=== PATIENT | male | born 1940 | race Caucasian/White ===

== ENCOUNTER 2019-09-19 12:29 | Outpatient (CLI) | payer MEDICARE, SELFPAY ==
--- NOTE | ~2019-09-19 | CT_ITS ---
EXAMINATION: CT chest w con DATE: 09/19/2019 13:26 INDICATION: Epithelioid mesothelioma TECHNIQUE: Computed tomography (CT) of the chest was performed with 75 cc intravenous contrast. The d ose-length product was 197.48 mGy-cm. Automated exposure control and iterative reconstruction technShoozy ue were employed. COMPARISON: None FINDINGS: There is mediastinal lymph node enlargement. Prevascular space lymph node measures 1.7 cm, image 50. Right paratracheal lymph node measures 1.2 cm, image 42. Right hilar lymphadenopathy measur ing 1.1 cm. There are calcified granulomas of the subcarinal location. No significant pleural or christiano cardial effusion. There is a right middle lobe pleural-based mass measuring 4.1 x 2.1 cm, images 57-6 5. There is a second right middle lobe mass measuring 1.7 x 1.5 cm, image 71. There is deformity of m ultiple right-sided ribs, possibly postsurgical. Fatty infiltration of the liver. The spleen, pancreas, adrenal glands are unremarkable. Gallbladder i s present. No endobronchial lesions. There are calcified pleural plaques in the left thorax, likely f rom previous asbestos exposure. Levator right diaphragm. IMPRESSION: 1. Pleural-based masses of the right middle lobe, largest measuring 4.1 x 2.1 cm, likely correspondin g to known mesothelioma. 2: Enlarged mediastinal and right hilar lymphadenopathy, likely metastatic disease. 3: Soft tissue pleural plaques left thorax some of which are calcified, possibly from previous asbest os exposure. Reviewed, dictated and finalized at location A. IMPRESSION: 1. Pleural-based masses of the right middle lobe, largest measuring 4.1 x 2.1 c m, likely corresponding to known mesothelioma. 2: Enlarged mediastinal and right hilar lymphadenopathy, likely metastatic dise ase. 3: Soft tissue pleural plaques left thorax some of which are calcified, possibl y from previous asbestos exposure.
== END 2019-09-19 12:30 | disposition home or self-care (01) ==
PROVIDERS: Visit Provider Internal Medicine Hematology & Oncology
DX: C45.9 Mesothelioma, unspecified (principal); R91.8 Other nonspecific abnormal finding of lung field; R59.0 Localized enlarged lymph nodes
CPT/HCPCS: 36415; 71260; 80048; 80053; 81001; 82248; 82533; 83615; 84100; 84439; 84443; 85025; 96413; J9299; Q9967

== ENCOUNTER 2019-12-12 08:58 | Outpatient (CLI) | payer MEDICARE, SELFPAY ==
--- NOTE | ~2019-12-12 | CT_ITS ---
EXAMINATION: CT chest w con EXAM DATE: 12/12/2019 09:34 INDICATION: Pleural mesothelioma. TECHNIQUE: Spiral CT of the chest following intravenous injection of 75 mL Omnipaque 350. Axial, cor onal and sagittal images were reviewed. Coronal maximum intensity pixel images of chest reviewed. Lamin hernandes dose-length product (DLP) for this examination was 204.80 mGy-cm. The exposure was tailored accor ding to patient size (auto mA exposure control), and iterative reconstruction (ASIR) was used as krystyna tional dose reduction technique. Comparison is made to prior examination from 09/19/2019. FINDINGS: There is new spiculated left suprahilar density measuring about 2.0 x 0.8 cm, likely malig carroll. There is been interval increase in size of the pericardial and right pleural metastatic diseas e, and the mediastinal, prevascular lymphadenopathy. For example a right lower paratracheal lymph nod e measuring 2.7 x 2.0 cm versus 8 x 10 mm on prior study. Pericardial invasion is extending from the ventricular apex to the superior aspect, filling space between the pulmonary artery and left atrium. Right-sided pleural and pericardial invasion is indenting the right atrium, with this region measurin g 3.5 x 3.0 cm today (previously 2.8 x 1.5 cm). Again there is nodular thickening of the right lung m edial pleural sulcus, retrocrural location. Again there are bilateral pleural plaques. There are no central pulmonary emboli. There are no pleural or pericardial effusions. Tracheobronch ial tree is patent. There is no pneumothorax. Heart normal in size. Upper abdomen is unrema rkable. There is thoracic spondylosis without osteoblastic or osteolytic lesions identified. IMPRESSION: 1. Worsening right pleural, pericardial metastases now causing mild mass effect on the atria. 2. Worsening prevascular, paratracheal metastatic lymphadenopathy. 3. Development of small spiculated left suprahilar mass likely malignancy. 4. Bilateral pleural plaques. Reviewed, dictated and finalized at location A. IMPRESSION: 1. Worsening right pleural, pericardial metastases now causing mild mass effec t on the atria. 2. Worsening prevascular, paratracheal metastatic lymphadenopathy. 3. Development of small spiculated left suprahilar mass likely malignancy. 4. Bilateral pleural plaques.
== END 2019-12-12 08:59 | disposition home or self-care (01) ==
PROVIDERS: Visit Provider Internal Medicine Hematology & Oncology
DX: C45.0 Mesothelioma of pleura (principal); R91.8 Other nonspecific abnormal finding of lung field; R59.0 Localized enlarged lymph nodes
CPT/HCPCS: 71260; Q9967

== ENCOUNTER 2020-03-18 09:32 | Outpatient (CLI) | payer MEDICARE, SELFPAY ==
--- NOTE | ~2020-03-18 | CT_ITS ---
EXAMINATION: CT chest w con DATE: 03/18/2020 10:04 INDICATION: Mesothelioma TECHNIQUE: Transaxial computed tomographic images of the chest were obtained after the administration of 75 cc of Omnipaque 350 intravenous contrast. The dose-length product (DLP) was 189.88 mGy-cm. Ite rative reconstruction was used. COMPARISON: 12/12/2019 FINDINGS: There has been interval decrease in size of pleural-based masses of the right lung. A 3.2 x 2.5 cm pleural-based mass exerting mass effect on the right atrium previously measured 3.5 x 3.0 cm. Pleural-based masses and thickening along the right hemidiaphragm and mediastinum have also decrease d in volume. Right hilar and right paratracheal lymphadenopathy persists but has slightly improved. T here is minimal change to aorticopulmonary window lymphadenopathy and slight increase in prevascular lymphadenopathy. A suprahilar nodule on the left previously measuring 2.1 x 1.1 cm now measures 3.3 x 2.5 cm. There is no pleural effusion or pneumothorax. The heart size is normal. Changes of prior rig ht thoracotomy are noted. There is mild thoracic spondylosis. IMPRESSION: 1. Mixed treatment response as evidenced by improved pleural-based masses on the right and partial im provement in mediastinal lymphadenopathy but enlargement of a left suprahilar mass and prevascular ly mphadenopathy. Reviewed, dictated and finalized at location A. TER CIVIL (CAD) IMPRESSION: 1. Mixed treatment response as evidenced by improved pleural-based masses on th e right and partial improvement in mediastinal lymphadenopathy but enlargement of a left suprahilar mass and prevascular lymphadenopathy.
== END 2020-03-18 09:33 | disposition home or self-care (01) ==
PROVIDERS: Visit Provider Internal Medicine Hematology & Oncology
DX: C45.0 Mesothelioma of pleura (principal)
CPT/HCPCS: 36415; 71260; 80053; 85025; Q9967

== ENCOUNTER 2020-06-03 09:35 | Outpatient (CLI) | payer MEDICARE, SELFPAY ==
--- NOTE | ~2020-06-03 | CT_ITS ---
EXAMINATION:CT chest w con DATE: 06/03/2020 10:36 INDICATION: Mesothelioma. TECHNIQUE: Computed tomography (CT) of the chest was performed with 75 mL Omnipaque 350 intravenous c ontrast. Automated exposure control and iterative reconstruction technique were employed. The dose-le ngth product (DLP) was 238.19 mGy-cm. COMPARISON: Chest CT 03/18/2020 FINDINGS: There is chronic mild elevation of right hemithorax. There is mild atelectasis in right ramu g. There is nodular pleural thickening in right hemithorax. There are calcified pleural plaques on th e left. There is a 3.3 x 3.0 cm mass in left lung upper lobe abutting the mediastinum, which measured 3.4 x 2.6 cm on 03/18/2020. There is left hilar and mediastinal lymphadenopathy. For example, a 1.8 x 1.7 cm node in the aorticopulmonary window previously measured 2.5 x 2.0 cm. A 1.6 x 1.3 cm right pa ratracheal node previously measured 2.0 x 1.7 cm. Calcified right hilar and mediastinal lymph nodes a re consistent with old granulomatous disease. The heart size is normal. There are coronary artery yael cifications. There is nodular thickening of the pericardium. No pericardial effusion. Calcifications in the spleen are consistent with old granulomatous disease. There are chronic defects in right sixth and seventh ribs. There is mild thoracic spondylosis and severe cervical spondylosis. IMPRESSION: 1. Nodular pleural thickening in right hemithorax, nodular pericardial thickening, mediastinal and le ft hilar lymphadenopathy, and left lung upper lobe mass, consistent with metastatic disease with mild interval improvement. Reviewed, dictated and finalized at location B. TLESS DENT REPAIR TECHNICIAN IMPRESSION: 1. Nodular pleural thickening in right hemithorax, nodular pericardial thickeni ng, mediastinal and left hilar lymphadenopathy, and left lung upper lobe mass, consistent with metastatic disease with mild interval improvement.
== END 2020-06-03 09:36 | disposition home or self-care (01) ==
PROVIDERS: Visit Provider Internal Medicine Hematology & Oncology
DX: C45.0 Mesothelioma of pleura (principal)
CPT/HCPCS: 71260; Q9967

== ENCOUNTER 2020-07-04 13:43 | Inpatient (IN) | payer MEDICARE, SELFPAY ==
[2020-07-04] VITALS (27 sets, daily range): BP systolic 115–159; BP diastolic 49–97; PULSE 60–114; RESP 11–25; TEMP 36.4–36.9; O2SAT 93–99; BMI 24.3
--- NOTE | ~2020-07-04 | CT_ITS ---
EXAMINATION: CTA chest PE protocol EXAM DATE: 07/04/2020 17:26 INDICATION: Tachycardia, shortness of breath. TECHNIQUE: Spiral CTA of the chest (pulmonary arteries) was performed with 100 cc Omnipaque 350 intr avenous contrast injection. Images were acquired during the pulmonary arterial phase. Coronal maxi mum intensity projection 3D-reconstructions were created by the technologist on dedicated workstation . Axial, coronal and sagittal reformatted images were reviewed. The dose-length product (DLP) for t his examination was 285.43 mGy-cm. The exposure was tailored according to patient size (auto mA exp osure control), and iterative reconstruction (ASIR) was used as additional dose reduction technique. Comparison is made to prior examination from 06/03/2020. FINDINGS: There is right lower lobe segmental pulmonary embolism. No large or central pulmonary embo li. No thoracic aortic dissection. There is 3.6 cm left upper lobe malignancy. Associated metastati c mediastinal, prevascular and left hilar lymphadenopathy. Patient has developed a small left pleura l effusion, possibly malignant. These findings have progressed compared to last month. Tracheobronchi al tree is patent. There is no mediastinal, hilar or axillary lymphadenopathy. There is no pneumo thorax. Heart normal in size. There is moderate coronary arterial calcification, arterial scleros is. Upper abdomen is unremarkable. Multiple old right rib fractures. IMPRESSION: 1. Positive for right lower lobe segmental pulmonary embolism. Low clot burden. 2. Worsening left suprahilar mass, associated mediastinal, left hilar lymphadenopathy. 3. Development of small left pleural effusion, possibly malignant. I discussed positive pulmonary embolism with charge nurse Mary on 3rd medical surgical floor at 07/04 17:33 TELECOM SALES CONSULTANT. Stated she would notify the doctor reduction furnace operator helper. Reviewed, dictated and finalized at location A. COM SALES CONSULTANT IMPRESSION: 1. Positive for right lower lobe segmental pulmonary embolism. Low clot burden . 2. Worsening left suprahilar mass, associated mediastinal, left hilar lymphade nopathy. 3. Development of small left pleural effusion, possibly malignant. I discussed positive pulmonary embolism with charge nurse Mary on 3rd medical surgical floor at 07/04/2020 17:33 TELECOM SALES CONSULTANT. Stated she would notify the doctor on ca ll.
--- NOTE | ~2020-07-04 | US_ITS ---
EXAMINATION: US venous doppler [facility] DATE: 07/05/2020 11:24 INDICATION: Pulmonary embolism. TECHNIQUE: Grayscale ultrasound images without and with compression and Doppler ultrasound images of the bilateral lower extremity veins were obtained. COMPARISON: None. FINDINGS: The visualized portions of right common femoral vein, profunda (deep) femoral vein, femoral vein, pop liteal vein, posterior tibial veins, peroneal veins, gastrocnemius vein and greater saphenous vein ou tflow are patent. The visualized portions of left common femoral vein, profunda femoral vein, femoral vein, popliteal v ein, posterior tibial veins, peroneal veins, gastrocnemius vein and greater saphenous vein outflow ar e patent. IMPRESSION: 1. No deep venous thrombosis in either lower limb. Reviewed, dictated and finalized at location A. ECTION WELDING MACHINE OPERATOR
--- NOTE | ~2020-07-04 | XR_ITS ---
EXAMINATION: XR chest 1V portable EXAM DATE: 07/04/2020 14:31 INDICATION: Fever. Mesothelioma. TECHNIQUE: Portable AP frontal chest x-ray was obtained. Correlation is made to CT chest from 06/03/19. FINDINGS: Subsegmental regions of bibasilar atelectasis or pneumonia. Left suprahilar mass better see n on CT. No pneumothorax or pleural effusion. Cardiomediastinal silhouette is normal. There are no os teoblastic or osteolytic lesions identified. IMPRESSION: 1. Bibasilar subsegmental atelectasis or pneumonia. 2. Left suprahilar mass. Correlate with recent CT report. Reviewed, dictated and finalized at location A. ANALYST
[2020-07-04] MEDS: SODIUM CHLORIDE 0.9% IV 1,000 ML 999 ML IV CONT (14:28)
--- NOTE | 2020-07-04 14:35 | ED.FEVER ---
HPI - Fever General Chief Complaint: Fever Stated Complaint: not feeling well since chemo, fever today Time Seen by Provider: 07/04/20 14:06 Source: patient and family Limitations: no limitations History of Present Illness HPI Narrative: Patient is 80 years old white male presents with fever started this morning 100.6. Patient report small amount of loose stool 2-3 times overnight. Currently is lethargic. Patient denies any chills, vomiting, chest pain, coughing, shortness of breath, headache, urinary symptoms. Patient had Tylenol 650 mg 1 hour prior to arrival to the emergency room. History of mesothelioma on chemotherapy since December 2019. Last chemotherapy was 5 days ago with slight change. Patient did not eat prior to arrival because he woke up and 12 noon. Currently does not have appetite. Patient denies history of COVID-19 infection or exposure to anybody known having COVID-19 Patient had his first Covid vaccine 4 weeks ago Related Data Home Medications Medication Instructions Recorded Confirmed amlodipine 10 mg PO DAILY 08/22/19 06/30/20 hydrochlorothiazide 12.5 mg PO DAILY 08/22/19 06/30/20 tamsulosin [Flomax] 0.4 mg PO DAILY 08/22/19 06/30/20 venlafaxine 150 mg PO DAILY 08/22/19 06/30/20 atorvastatin 40 mg tablet 40 mg PO DAILY 12/10/19 06/30/20 levothyroxine 75 mcg PO DAILY 01/15/20 06/30/20 dexamethasone 4 mg PO DAILY 02/12/20 06/30/20 folic acid 0.4 mg PO DAILY 02/12/20 06/30/20 zolpidem [Ambien CR] 6.25 mg PO HS 06/25/20 06/30/20 Allergies Allergy/AdvReac Type Severity Reaction Status Date / Time No Known Allergies Allergy Verified 07/04/20 13:49 Review of Systems Review of Systems: Narrative: CONSTITUTIONAL: Denies fever, chills, or sweats. EYES: Denies visual changes, redness, or discharge. ENT: Denies rhinorrhea, congestion, sore throat, or otalgia. CARDIOVASCULAR: Denies chest pain, palpitations, or edema. RESPIRATORY: Denies cough or dyspnea. GASTROINTESTINAL: Denies abdominal pain, nausea, vomiting, or diarrhea. GENITOURINARY: Denies dysuria or hematuria. SKIN: Denies rash or itching. MUSCULOSKELETAL: Denies back pain, joint pain, or myalgia. NEUROLOGIC: Denies headache, numbness, or weakness. PSYCHIATRIC: Denies anxiety or depression. PMFSH Social History Social History Smoking status: Never smoker Second hand tobacco smoke exposure: Yes (in past) Gender identity (if verbalized by the patient): Male Spiritual care concerns: No Exam Narrative: Exam Narrative: General appearance: Well-developed, well-nourished Skin: Normal color Head: Normocephalic, nontraumatic Eyes: Clear conjunctiva ENT: Oropharynx normal, ears normal, nose normal Neck: Supple, nontender Chest and respiratory: Airway patent, no respiratory distress, no accessory muscle use Heart: Regular rate/rhythm Abdomen: Soft, nontender, no organomegaly, quiet bowel sounds Vascular: Normal peripheral pulses, normal capillary refill. Musculoskeletal: Normal range of motion, nontender back Neurologic: Alert and oriented ?3, SPINDRAW OPERATOR is normal as tested, no gross motor deficit Course Course Emergency Course: Stable Consultations Consultation #1: Dr. Felix Admit to hospitalist Date: 07/04/20 Time: 15:27 Vital Signs Vital signs: Vital Signs Temperature 36.9 C 07/04/20 13:46 Pulse Rate 60 07/04/20 13:46 Respiratory Rate 18 07/04/20 13:46 Blood Pressure 122/67 07/04/20 13:46 Pulse Oximetry 95 07/04/20 13:46 Temperature 36.9 C 07/04/20 13:46 Pulse Rate 102 H 07/04/20 15:16 Respiratory Rate 21 H 07/04/20 15:16 Blood Pressure 124/81 07/04/20 15:15 Pulse Oximetry 93
[2020-07-04 14:36] LABS: Basophils Percent Auto 0.2 % (0.2-1.2); Eosinophils Percent Auto 0.2 % (0-4.4); Hematocrit 37.7 % (42.0-52.0); Hemoglobin 12.2 g/dL (14.0-18.0); Immature Granulocyte Absolute 0.06 K/mm3 (0.00-0.031); Immature Granulocyte Percent A 0.4 % (0-0.5); Lymphocytes Absolute Auto 0.63 K/mm3 (0.9-3.2); Lymphocytes Percent Auto 3.9 % (18.3-44.2); Mean Corpuscular HGB Conc 32.4 g/dl (32-36); Mean Corpuscular Volume 86.7 fl (80-100); Mean Platelet Volume 9.4 fl (7.4-10.4); Monocytes Absolute Auto 0.2 K/mm3 (0.1-0.6); Monocytes Percent Auto 1.1 % (2.6-8.5); Neutrophils Absolute Auto 15.3 K/mm3 (1.3-6.7); Neutrophils Percent Auto 94.2 % (45.5-73.1); Platelet Count Result 285 k/mm3 (150-375); Red Blood Count 4.35 M/mm3 (4.6-6.20); Red Cell Distribution Width 14.9 % (11.5-14.5); White Blood Count 16.3 K/mm3 (4.5-10.0)
[2020-07-04 14:46] LABS: Prothrombin Time 14.2 Seconds (11.1-14.7)
[2020-07-04 14:47] LABS: Partial Thromboplastin Time 29.9 SECONDS (22.3-36.8)
[2020-07-04 14:48] LABS: Alanine Aminotransferase 23 U/L (4-50); Albumin Level 3.8 g/dL (3.5-5.1); Alkaline Phosphatase 98 U/L (38-126); Anion Gap 7 mmol/L (8-16); Aspartate Amino Transferase 35 U/L (17-59); Bilirubin,Total 1.2 mg/dL (0.2-1.3); Blood Urea Nitrogen 27 mg/dL (9-20); Calcium 9.1 mg/dL (8.4-10.2); Carbon Dioxide 30 mmol/L (22-30); Chloride 98 mmol/L (98-107); Estimated CRCL calculation 52 ml/min; Estimated Glomerular Filt Rate > 60; Glucose 100 mg/dL (75-110); Potassium 3.4 mmol/L (3.4-5.0); Sodium 135 mmol/L (137-145)
[2020-07-04 14:49] LABS: Lactic Acid Reflex 1.4 mmol/L (0.7-2.1)
[2020-07-04 15:48] LABS: Add Urine Microscopic? YES; Appearance Urine Cloudy (Clear); Bacteria Urine Trace /hpf; Bilirubin Urine Negative (Negative); Blood Urine Negative (Negative); Color Urine Yellow (Yellow); Glucose Urine UA Negative (Negative); Ketones Urine Trace mg/dL (Negative); Leukocyte Esterase Ur Negative LEU/UL (Negative); Mucus Urine Heavy /lpf; Nitrate Urine Negative (Negative); Protein Urine 2+ mg/dL (Negative); RBC Urine 0-2 /hpf (0-2); Specific Grav Ur 1.027 (1.001-1.035); Squamous Epithelial Cell Urine Rare /hpf (Few)
--- NOTE | 2020-07-04 16:00 | PM.IMHP ---
H&P: HPI History of Present Illness Date/Time: 07/04/20 16:00. The patient was seen and evaluated in the emergency department. Chief Complaint: Fever. Narrative: This is a pleasant 80-year-old male currently undergoing chemotherapy for mesothelioma who presented to the emergency department earlier today via private vehicle from home with reports of a fever. He has been receiving chemotherapy since December [address] Felix, and it is not unusual for him to feel a little worn down after treatment however he has felt much worse than usual since his last treatment 5 days ago. Symptoms include generalized malaise, lethargy, 2 to 3 loose stools a day, decreased appetite, and low-grade fever up to 100.6?. His white blood cell count was elevated however there is no obvious source of infection by history or workup done in the emergency department. Chest x-ray did show atelectasis versus pneumonia however he has no symptoms to suggest pneumonia although he does have an occasional, nonproductive cough that is not a new finding. The emergency department physician spoke with Dr. Felix, who felt it would be prudent to start him on empiric antibiotics and admitted to the hospital. Upon speaking with the patient, he was noted to be perhaps intermittently short of breath and during the time I was in the room he was in bigeminy with a rate in the low 100s however has periods where his heart rate will jump up into the 140s with frequent ectopy. Interestingly, he is completely asymptomatic with that. With further questioning, he does mention having some mild left-sided pleuritic chest pain that seems to happen right around the time he receives chemotherapy and is not necessarily present at this time. A subsequent chest CTA demonstrated a right lower lobe subsegmental pulmonary embolism with low clot burden, the development of a small left pleural effusion (possibly malignant), and worsening left suprahilar mass associated with mediastinal and left hilar lymphadenopathy. He denies headache, sinus congestion, rhinorrhea, otalgia, odynophagia, nausea, vomiting, and dysuria. He has not had chest pain and he denies palpitations. No lower extremity edema. Review of Systems Review of Systems: Narrative: Twelve systems were reviewed with pertinent positives and negatives as per HPI. Except as documented, all other systems were reviewed and are negative. [facility] Past Medical History Medical History (Updated 07/04/20 @ 21:51 by Pascale Bridges PA-C) Anemia Benign prostatic hyperplasia Depression Hyperlipidemia Hypertension Hypothyroidism Memory loss Pleural mesothelioma Status post right pleurectomy and decortication and hyperthermic intrathoracic chemotherapy at [facility] in [place], [place]. He was treated with immunotherapy thereafter and has been on chemotherapy since December [address] Felix. Pulmonary embolism (~07/04/20) Surgical History Surgical History (Updated 07/04/20 @ 21:41 by Pacsale Bridges PA-C) History of arthroscopy of left knee History of bilateral cataract extraction History of lung surgery Right pleurectomy and decortication for treatment of pleural mesothelioma. Performed in 2017 at [facility] in [place], [place]. History of lymph node biopsy Family History Family History Mother Alzheimer disease Father Malignant neoplasm of prostate Social History Social History (Updated 07/04/20 @ 21:57 by Pascale Bridges PA-C) Social History: Surrogate decision maker: Nicky Goldsmith, significant other. Code status: Full code. Smoking status: Never smoker Second hand tobacco smoke exposure: Yes (in past) Alcohol intake: current Drinks per week: 1 Substance use: current Other substance usage details: CBD oil. Last use: 06/30/20 Additional living arrangements comments: Patient resides with his significant other in [place].
--- NOTE | 2020-07-04 17:22 | PC.NURSE ---
PT DELAY GOING TO FLOOR, PT SEEN BY HOSPITALIST IN ER ROOM, NEW ORDERS PLACED. PT TO GO TO CT SCAN PRIOR TO MED SURG
--- NOTE | 2020-07-04 18:19 | ADMGEN ---
This patient, Javier Gerard, was admitted to [facility] Surg Room 330-01. Patient/family oriented to hospital policies and general routines including ID bracelet, bed and alarms, visiting hours, pain management, procedures, bathroom and other care routines, personal items, smoking policy, room service/diet, and visiting hours. Information on how to activate the Rapid Response Team has been discussed. Patient/Family are encouraged to report perceived risks to care and to ask questions if they do not understand what they are told or what they should do.
[2020-07-04] MEDS: SODIUM CHLORIDE 0.9% IV 1,000 ML 75 ML IV CONT (18:58)
[2020-07-04] MEDS: ENOXAPARIN 80 MG/0.8 ML SYRINGE 75 MG SUB-Q (19:43)
--- NOTE | 2020-07-04 22:03 | ECG_ITS ---
Measurements Intervals [place] Rate: 109 P: 19 [place]: 164 QRS: 127 QRSD: 109 T: -46 QT: 329 QTc: 444 Interpretive Statements SINUS TACHYCARDIA ATRIAL PREMATURE COMPLEX RIGHT AXIS DEVIATION POSSIBLE LEFT ATRIAL ENLARGEMENT INCOMPLETE RIGHT BUNDLE BRANCH BLOCK ST-T WAVE ABNORMALITY IN INFERIOR LEADS- CONSIDER ISCHEMIA BASELINE ARTIFACT- V1-V6 ABNORMAL ECG Electronically Signed On 07-05-2020 6:52:05 MACHINE I COREMAKER by Carlton Lawrence D.O.
[2020-07-04] MEDS: GABAPENTIN 300 MG CAPSULE PO (22:51)
[2020-07-04] MEDS: DONEPEZIL HCL 10 MG TABLET PO (22:51)
[2020-07-04] MEDS: TAMSULOSIN HCL 0.4 MG CAPSULE PO (22:51)
[2020-07-04] MEDS: ATORVASTATIN 40 MG TABLET PO (22:51)
[2020-07-05] VITALS: BP 145/65; PULSE 108; PULSE 110; RESP 18; TEMP 36.9; O2SAT 94
[2020-07-05 01:56] VITALS: PULSE 110; RESP 18; O2SAT 94
[2020-07-05 04:00] VITALS: PULSE 104
[2020-07-05 06:17] LABS: Basophils Percent Auto 0.1 % (0.2-1.2); Eosinophils Percent Auto 0.2 % (0-4.4); Hematocrit 33.9 % (42.0-52.0); Hemoglobin 10.9 g/dL (14.0-18.0); Immature Granulocyte Absolute 0.05 K/mm3 (0.00-0.031); Immature Granulocyte Percent A 0.5 % (0-0.5); Lymphocytes Percent Auto 5.5 % (18.3-44.2); Mean Corpuscular HGB Conc 32.2 g/dl (32-36); Mean Corpuscular Hemoglobin 28.3 pg (26-34); Mean Corpuscular Volume 88.1 fl (80-100); Mean Platelet Volume 9.3 fl (7.4-10.4); Monocytes Absolute Auto 0.2 K/mm3 (0.1-0.6); Monocytes Percent Auto 1.9 % (2.6-8.5); Neutrophils Percent Auto 91.8 % (45.5-73.1); Platelet Count Result 209 k/mm3 (150-375); Red Blood Count 3.85 M/mm3 (4.6-6.20); White Blood Count 10.8 K/mm3 (4.5-10.0)
[2020-07-05] MEDS: LEVOTHYROXINE SODIUM 75 MCG TABLET PO (06:18)
[2020-07-05] MEDS: ENOXAPARIN 80 MG/0.8 ML SYRINGE 75 MG SUB-Q (06:18)
[2020-07-05 06:32] LABS: Alanine Aminotransferase 16 U/L (4-50); Albumin Level 3.3 g/dL (3.5-5.1); Alkaline Phosphatase 81 U/L (38-126); Anion Gap 5 mmol/L (8-16); Aspartate Amino Transferase 29 U/L (17-59); Bilirubin,Total 0.9 mg/dL (0.2-1.3); Blood Urea Nitrogen 23 mg/dL (9-20); Calcium 8.2 mg/dL (8.4-10.2); Carbon Dioxide 31 mmol/L (22-30); Chloride 99 mmol/L (98-107); Estimated CRCL calculation 57 ml/min; Estimated Glomerular Filt Rate > 60; Glucose 95 mg/dL (75-110); Magnesium 1.6 mg/dL (1.6-2.3); Phosphorus 3.3 mg/dL (2.5-4.5); Potassium 3.5 mmol/L (3.4-5.0); Sodium 135 mmol/L (137-145)
[2020-07-05 08:00] VITALS: BP 148/80; PULSE 104; PULSE 105; RESP 16; TEMP 36.6; O2SAT 94
[2020-07-05] MEDS: GABAPENTIN 300 MG CAPSULE PO (09:14)
[2020-07-05] MEDS: SODIUM CHLORIDE 0.9% IV 1,000 ML 75 ML IV CONT (09:14)
[2020-07-05] MEDS: PROCHLORPERAZINE MALEATE 5 MG TABLET 10 MG PO ×2 (09:15→15:54)
[2020-07-05] MEDS: FOLIC ACID 0.4 MG TABLET PO (09:15)
[2020-07-05] MEDS: amLODIPine BESYLATE 5 MG TABLET 10 MG PO (09:15)
[2020-07-05] MEDS: VENLAFAXINE HCL XR 75 MG CAP.ER.24H 150 MG PO (09:15)
[2020-07-05 12:00] VITALS: BP 130/69; PULSE 106; PULSE 87; RESP 16; TEMP 37.1; O2SAT 95
--- NOTE | 2020-07-05 14:31 | PM.DS ---
DS: Admitting Diagnosis Admitting Diagnosis Admitting Diagnosis: (1) Fever: (2) Pulmonary embolism on right: (3) Tachycardia: (4) Pleural mesothelioma: (5) Hypertension: (6) Hypothyroidism: DS: Discharge Diagnosis Discharge Diagnosis (1) Fever: Code(s): R50.9 - Fever, unspecified Status: Acute (2) Pulmonary embolism on right: Code(s): I26.99 - Other pulmonary embolism without acute cor pulmonale Status: Acute (3) Pneumonia: Qualifiers: Laterality: bilateral Lung location: lower lobe of lung Pneumonia type: due to unspecified organism Qualified Code(s): J18.9 - Pneumonia, unspecified organism Code(s): J18.9 - Pneumonia, unspecified organism Status: Acute (4) Tachycardia: Code(s): R00.0 - Tachycardia, unspecified Status: Acute (5) Mesothelioma (pleural): Code(s): C45.0 - Mesothelioma of pleura Status: Acute DS: Summary Hospital Course Reason for hospitalization: Fever Hospital Course: This is a pleasant 80-year-old male currently undergoing chemotherapy for mesothelioma who presented to the emergency department earlier today via private vehicle from home with reports of a fever. He has been receiving chemotherapy since December [address] Felix, and it is not unusual for him to feel a little worn down after treatment however he has felt much worse than usual since his last treatment 5 days ago. Symptoms include generalized malaise, lethargy, 2 to 3 loose stools a day, decreased appetite, and low-grade fever up to 100.6?. His white blood cell count was elevated however there is no obvious source of infection by history or workup done in the emergency department. Chest x-ray did show atelectasis versus pneumonia however he has no symptoms to suggest pneumonia although he does have an occasional, nonproductive cough that is not a new finding. The emergency department physician spoke with Dr. Felix, who felt it would be prudent to start him on empiric antibiotics and admitted to the hospital. Upon speaking with the patient, he was noted to be perhaps intermittently short of breath and during the time I was in the room he was in bigeminy with a rate in the low 100s however has periods where his heart rate will jump up into the 140s with frequent ectopy. Interestingly, he is completely asymptomatic with that. With further questioning, he does mention having some mild left-sided pleuritic chest pain that seems to happen right around the time he receives chemotherapy and is not necessarily present at this time. A subsequent chest CTA demonstrated a right lower lobe subsegmental pulmonary embolism with low clot burden, the development of a small left pleural effusion (possibly malignant), and worsening left suprahilar mass associated with mediastinal and left hilar lymphadenopathy. He denies headache, sinus congestion, rhinorrhea, otalgia, odynophagia, nausea, vomiting, and dysuria. He has not had chest pain and he denies palpitations. No lower extremity edema. He was admitted to [facility] overnight in the morning had defervesced, he was fluid resuscitated and wanted to go home. He was started on novel anticoagulants and discharged home. Will follow up in the outpatient setting Consults: No consults Procedures: No procedures Time Spent with Patient Time attestation: Total time spent providing and/or coordinating discharge services: Exam Narrative: Exam Narrative: lying in bed. Const: General: no acute distress, alert, awake and ill appearing Nutritional Appearance: average body habitus Orientation/consciousness: patient oriented x3 HENMT: Head: normal to inspection and normocephalic Ears: hearing grossly normal bilaterally General nose exam: Normal external nose present Face and sinus: normal facial exam Eyes: General: appearance normal, both eyes and all related structures Pupils: Equal, round and lilli
[2020-07-05 16:00] VITALS: BP 128/63; PULSE 80; RESP 16; TEMP 37.1; O2SAT 96
--- NOTE | 2020-07-05 18:44 | PDONCCN ---
HPI - Date of Consult Date/Time: 07/05/20 18:44 Requesting Physician: Pablito Barrett MD Primary Care Provider: Grzegorz Gray - Consult Narrative Reason for consult: Malignant mesothelioma. Narrative: Javier Gerard is a 80 year old male with history of malignant recurrent mesothelioma. Patient is currently on second-line chemotherapy with Alimta and Avastin. His last chemotherapy was on June 30. Patient called on the weekend with complain of tiredness fatigue and extreme lethargic. He had low-grade fever. I instructed him to go to the ER. COVID test was ordered and results are pending. Chest x-ray showed atelectasis versus pneumonia. He was started on empiric antibiotic. CT chest showed right lower lobe pulmonary embolism as well as worsening of the left suprahilar mass associated mediastinal and left hilar lymphadenopathy. There was development of small left-sided pleural effusion possible malignant. Patient is now feeling better and actually ready to be discharged home today. Review of Systems - Review of Systems All systems reviewed & are unremarkable except as noted in HPI and [facility] Medical History: Medical History (Last Updated 07/04/20 @ 21:51 by Pascale Bridges PA-C) Anemia Benign prostatic hyperplasia Depression Hyperlipidemia Hypertension Hypothyroidism Memory loss Pleural mesothelioma Status post right pleurectomy and decortication and hyperthermic intrathoracic chemotherapy at [facility] in [place], [place]. He was treated with immunotherapy thereafter and has been on chemotherapy since December [address] Felix. Pulmonary embolism Onset Date: ~07/04/20 Surgical History: Surgical History (Last Updated 07/04/20 @ 21:41 by Pascale Bridges PA-C) History of arthroscopy of left knee History of bilateral cataract extraction History of lung surgery Right pleurectomy and decortication for treatment of pleural mesothelioma. Performed in 2017 at [facility] in [place], [place]. History of lymph node biopsy Family History: Family History (Last Reviewed 07/04/20 @ 21:41 by Pascale Bridges PA-C) Mother Alzheimer disease Father Malignant neoplasm of prostate - Social History Social History: Social History (Last Updated 07/04/20 @ 21:57 by Pascale Bridges PA-C) Gender Identity: Gender identity (if verbalized by the patient): Male Alcohol Use: Alcohol intake: current Drinks per week: 1 Substance Use: Substance use: current Other substance usage details: CBD oil. Last use: 06/30/20 Others: Spiritual care concerns: No Smoking Status: Smoking status: Never smoker Second hand tobacco smoke exposure: Yes Second hand tobacco smoke exposure comment: in past Meds Home Medications Medication Instructions Recorded Confirmed Type amlodipine 10 mg PO DAILY 08/22/19 07/04/20 History hydrochlorothiazide 12.5 mg PO DAILY 08/22/19 07/04/20 History tamsulosin [Flomax] 0.4 mg PO DAILY 08/22/19 07/04/20 History venlafaxine 150 mg PO DAILY 08/22/19 07/04/20 History atorvastatin 40 mg tablet 40 mg PO HS 12/10/19 07/04/20 History levothyroxine 75 mcg PO DAILY 01/15/20 07/04/20 History dexamethasone 4 mg PO DAILY 02/12/20 07/04/20 History folic acid 0.4 mg PO DAILY 02/12/20 07/04/20 History zolpidem [Ambien CR] 6.25 mg PO HS 06/25/20 07/04/20 History donepezil 10 mg PO HS 07/04/20 07/04/20 History gabapentin 300 mg PO BID 07/04/20 07/04/20 History prochlorperazine maleate 10 mg PO BID 07/04/20 07/04/20 History rivaroxaban [Xarelto DVT-PE Treat See Rx Instructions .ROUTE 07/05/20 Rx 30d Start] .COMPLEX #51 ea Allergies Allergy/AdvReac Type Severity Reaction Status Date / Time No Known Allergies Allergy Verified 07/04/20 18:23 Results - Labs CBC & Chem 7: 07/05/20 05:58 07/05/20 05:58 Labs: Short CBC 07/05/20 Range/Units 05:58 WBC 10.8 H (4.5-
[2020-07-05 19:32] LABS: SARS-CoV-2 RNA PCR Negative
--- NOTE | 2020-07-05 21:27 | ECHO_ITS ---
Patient Info Name: Javier Gerard Age: 80 years : 1940 Gender: Male Ht: 68 in Wt: 159 lbs BSA: 1.87 m2 HR: 100 bpm BP: 148 / 80 mmHg Heart Rhythm: Tachycardia, Sinus Rhythm Technical Quality: Good Exam Date: 07/05/2020 1:12 PM Exam Location: [facility] Pulmonary Patient Status: Inpatient Admit Date: 07/04/2020 Staff Ordering Physician: Pascale Bridges PA-C [employer] Box[employer] Estimator: Marcus Amezquita RDCS Attending Provider: Jerome Barrett MD Referring Physician: Cyrus MARTINS; Exam Type: CA echo doppler color flow Study Info Indications R00.0 - Tachycardia, unspecified Complete two-dimensional, color flow and Doppler transthoracic echocardiogram is performed. History/Risk Factors Tachycardia, HTN. Summary 1. Complete two-dimensional, color flow and Doppler transthoracic echocardiogram is performed. 2. Left ventricular chamber dimension is normal. 3. Left ventricular systolic function is normal, estimated at 65-70%. 4. Left atrial chamber dimension is moderately enlarged. 5. There is mild aortic valve sclerosis. Left Ventricle Left ventricular chamber dimension is normal. Left ventricular systolic function is normal, estimated at 65-70%. Left ventricular septal wall motion is abnormal with septal motion related to bundle branch block. The left ventricular diastolic function is grade I diastolic dysfunction. Right Ventricle Right ventricular chamber dimension is normal. Left Atria Left atrial chamber dimension is moderately enlarged. Right Atria Right atrial chamber dimension is normal. Aortic Valve The aortic valve is trileaflet. There is mild aortic valve sclerosis. Pulmonic Valve The pulmonic valve is not well visualized. Mitral Valve The mitral valve has normal leaflets. The mitral valve annulus is mildly calcified. Tricuspid Valve The tricuspid valve leaflets are normal. Pericardium/Pleural The pericardium appears normal. Aorta The aortic root size at the sinus of Valsalva is normal. Left Ventricular Outflow Tract Name Value Normal LVOT 2D LVOT Diameter 1.9 cm LVOT Doppler LVOT Peak Gradient 6 mmHg LVOT Mean Gradient 3 mmHg LVOT VTI 16 cm LVOT VTI/AV VTI Ratio 0.8 LVOT Stroke Volume 48 ml LVOT CO 4.8 l/min LVOT CI 2.6 l/min/m2 Mitral Valve Name Value Normal MV Doppler MV Decel Lares 344 cm/s2 MV PHT 65 ms MV Area (PHT) 3.4 cm2 4.0-5.0 MV Diastolic Function MV E Peak Velocity 77 cm/s
== END 2020-07-05 18:40 | disposition home or self-care (01) | DRG 193 ==
LOC: ANHED 15:31 → ANH3MEDSUR 17:45
PROVIDERS: Physician Assistant; Admitting Provider Internal Medicine; Emergency Provider Emergency Medicine; Visit Provider Internal Medicine
DX: J18.9 Pneumonia, unspecified organism (principal); I26.99 Other pulmonary embolism without acute cor pulmonale; C45.0 Mesothelioma of pleura; Z20.822 Contact with and (suspected) exposure to COVID-19; R00.0 Tachycardia, unspecified; I10 Essential (primary) hypertension; E03.9 Hypothyroidism, unspecified; E78.5 Hyperlipidemia, unspecified; N40.0 Benign prostatic hyperplasia without lower urinary tract symptoms; D64.9 Anemia, unspecified; Z28.21 Immunization not carried out because of patient refusal; Z79.899 Other long term (current) drug therapy; Z98.42 Cataract extraction status, left eye; Z98.41 Cataract extraction status, right eye
CPT/HCPCS: 36415; 71045; 71275; 80053; 81001; 83605; 83735; 84100; 84443; 85025; 85610; 85730; 87040; 87086; 87804; 93005; 93306; 93970; 96361; 96365; 99285; A9270; C9803; G0378; J1650; J1956; J7030; Q9967; U0003; U0005